=== PATIENT | male | born 1990 | race Two or more races ===

== ENCOUNTER 2019-07-14 04:57 | Emergency (ER) | payer SELFPAY ==
[~2019-07-14] VITALS: Ht 193 cm; Wt 77.1 kg
--- NOTE | 2019-07-14 05:05 | NUR ---
PT BIB EMS. AAOX. C/O DIZZINESS. UPON ASSESSMENT PT STATES "I FEEL FINE RIGHT NOW, I JUST DRANK A LOT AND I WANT AN IV TO FLUSH EVERYTHING OUT." -DIZZY, -PAIN. PLACED ON MONITOR AND PULSE OX. PT BREATHING EVEN AND UNLABORED.
--- NOTE | 2019-07-14 05:05 | NUR ---
Note miranda in EDM - 07/14/19 at 0515 by EVICTOR PT BIB EMS. AAOX. C/O DIZZINESS. UPON ASSESSMENT PT STATES "I FEEL FINE RIGHT NOW, I JUST DRANK A LOT AND I WANT AN IV TO FLUSH EVERYTHING OUT." -DIZZY, -PAIN. PT BREATHING EVEN AND UNLABORED.
[2019-07-14 05:07] VITALS: BP 136/97
== END 2019-07-14 05:20 | disposition home or self-care (01) ==
LOC: ER 04:57
DX: F41.9 Anxiety disorder, unspecified (principal); G47.00 Insomnia, unspecified; F17.200 Nicotine dependence, unspecified, uncomplicated

== ENCOUNTER 2021-07-26 20:18 | Emergency (ER) | payer SELFPAY ==
[~2021-07-26] VITALS: Ht 195.6 cm; Wt 81.6 kg
--- NOTE | 2021-07-26 20:32 | NUR ---
PT BIBSELF C/O ANXIETY ATTACKS S/P USING [facility] FOR THE FIRST TIME AT 1600. PT AAOX4 BREATHING EVENLY AND UNLABORED. PT SKIN WARM AND DRY. PT ATTACHED TO MONITOR AND POX. PT GIVEN BLANKET AND CALL LIGHT WITHIN REACH
[2021-07-26] MEDS ORDERED: LORAZEPAM INJ 2 MG/ML VIAL ONE (20:50)
--- NOTE | 2021-07-26 20:54 | NUR ---
EMT AT BEDSIDE
[2021-07-26] MEDS ORDERED: LORAZEPAM INJ 2 MG/ML VIAL IM ONE (21:00)
--- NOTE | 2021-07-26 22:28 | NUR ---
Patient discharged to home in stable condition. Written and verbal after care instructions given. Patient verbalizes understanding of instruction.
[2021-07-26 22:31] VITALS: BP 115/78
== END 2021-07-26 22:31 | disposition home or self-care (01) ==
LOC: ER 20:20
DX: F15.980 Other stimulant use, unspecified with stimulant-induced anxiety disorder (principal); F12.90 Cannabis use, unspecified, uncomplicated; Z88.6 Allergy status to analgesic agent; Z88.0 Allergy status to penicillin
CPT/HCPCS: 93005 ×2; 96372; 99283; J2060